=== PATIENT | female | born 1975 | race Two or more races ===

== ENCOUNTER 2019-04-06 17:35 | Emergency (ER) | payer MEDICAID ==
[2019-04-06] MEDS ORDERED: Acetaminophen/HYDROcodone 325-5 MG Tab PO ONE (17:36)
--- NOTE | 2019-04-06 17:57 | EDM.PDOC ---
ED HPI GENERAL MEDICAL PROBLEM - General Chief Complaint: Back Pain or Injury Stated Complaint: LT SHOULDER PAIN Time Seen by Provider: 04/06/19 17:52 Source of Information: Reports: Patient History Limitations: Reports: No Limitations - History of Present Illness INITIAL COMMENTS - FREE TEXT/NARRATIVE: Presents with neck pain and increased chronic left shoulder pain since slipping on ice and falling 2 days ago. Pain radiates to left bicep. Denies loss of consciousness, headache, numbness, tingling or weakness. No improvement with Tramadol. Onset Date: 04/04/19 Location: Reports: Neck, Upper Extremity, Left Quality: Reports: Ache Severity: Moderate Associated Symptoms: Reports: No Other Symptoms - Related Data Allergies Allergy/AdvReac Type Severity Reaction Status Date / Time Sulfa (Sulfonamide Allergy Rash Verified 04/06/19 17:48 Antibiotics) Home Meds: Home Meds ARIPiprazole [Abilify] 2 mg PO DAILY 04/06/19 [History] Baclofen 10 mg PO TID PRN #20 tablet 04/06/19 [Rx] Past Medical History Cardiovascular History: Reports: High Cholesterol Gastrointestinal History: Reports: PUD Psychiatric History: Reports: Depression - Past Surgical History Musculoskeletal Surgical History: Reports: Shoulder Surgery (Arthroscopic left shoulder 11/02/18) Social & Family History - Tobacco Use Smoking Status *Q: Current Every Day Smoker Tobacco Use Within Last Twelve Months: Cigarettes ED ROS GENERAL - Review of Systems Review Of Systems: Comprehensive ROS is negative, except as noted in HPI. ED EXAM, UPPER BACK/NECK PAIN - Physical Exam Exam: See Below Exam Limited By: No Limitations General Appearance: Alert, WD/WN, No Apparent Distress Ears Exam: Normal External Exam Nose Exam: Normal Inspection Throat/Mouth Exam: No Airway Compromise Head Exam: Atraumatic, Normocephalic Neck Exam: Tenderness (posterior neck) Nexus Criteria: Posterior, Midline Cervical Tenderness Cardiovascular/Respiratory: Regular Rate, Rhythm, Normal Peripheral Pulses, No Respiratory Distress Back Exam: Full Range of Motion Extremities: Normal Range of Motion, Normal Capillary Refill, Other (left shoulder tenderness, left biceps tenderness) Neurologic: No Motor/Sensory Deficits, Alert, Normal Mood/Affect, Oriented x 3 DTR: 2+: Bicep (L) Psychiatric: Normal Affect, Normal Mood Skin Exam: Normal Color, Warm/Dry Course - Vital Signs Last Recorded V/S: Last Vital Signs Temp 36.6 C 04/06/19 17:50 Pulse 91 04/06/19 17:50 Resp 18 04/06/19 17:50 BP 129/83 04/06/19 17:50 Pulse Ox 100 04/06/19 17:50 - Orders/Labs/Meds Orders: Active Orders 24 hr Category Date Time Status Cervical Spine wo Cont [CT] Stat Exams 04/06/19 17:51 Taken Shoulder Comp Lt [CR] Stat Exams 04/06/19 17:52 Taken Baclofen [Lioresal] Med 04/06/19 18:54 Once 10 mg PO ONETIME ONE - Radiology Interpretation Free Text/Narrative:: Left Shoulder XR: No acute process. CT C-spine w/o contrast: No sign of acute injury. minimal multilevel degenerative spondylosis. Emphysema. - Re-Assessments/Exams Free Text/Narrative Re-Assessment/Exam: 04/06/19 18:57 Discharged with [place] 5/325 #4 tabs (starter pack). Departure - Departure Time of Disposition: 18:55 Disposition: Home, Self-Care 01 Condition: Good Clinical Impression: Cervical strain, acute Qualifiers: Encounter type: initial encounter Qualified Code(s): S16.1XXA - Strain of muscle, fascia and tendon at neck level, initial encounter Left shoulder strain Qualifiers: Encounter type: initial encounter Qualified Code(s): S46.912A - Strain of unspecified muscle, fascia and tendon at shoulder and upper arm level, left arm , initial encounter - Discharge Information *PRESCRIPTION DRUG MONITORING PROGRAM REVIEWED*: Yes *COPY OF PRESCRIPTION DRUG MONITORING REPORT IN PATIENT CHERYL: No Prescriptions: Baclofen 10 mg PO TID PRN #20 tablet PRN Reason: Muscle Spasm Instructions: Cervical Sprain, [id number], Muscle Strain, [id number]-[id number] Referrals: Comfort Carpenter NP [Primary Care Provider] - 3 Days Forms: ED Department Discharge, ED Return to Work/School Form Additional Instructions: Do not take Tramadol while taking [place]. Fill the Baclofen prescription and take as directed. Follow up with your primary physician in 3 days. Sepsis Event Note - Focused Exam Vital Signs: Vital Signs Temp Pulse Resp BP Pulse Ox 04/06/19 17:50 36.6 C 91 18 129/83 100 Date Exam was Performed: 04/06/19 Time Exam was Performed: 18:54 - My Orders Last 24 Hours: My Active Orders 04/06/19 17:51 Cervical Spine wo Cont [CT] Stat 04/06/19 17:52 Shoulder Comp Lt [CR] Stat 04/06/19 18:54 Baclofen [Lioresal] 10 mg PO ONETIME ONE - Assessment/Plan Last 24 Hours: My Active Orders 04/06/19 17:51 Cervical Spine wo Cont [CT] Stat 04/06/19 17:52 Shoulder Comp Lt [CR] Stat 04/06/19 18:54 Baclofen [Lioresal] 10 mg PO ONETIME ONE
[2019-04-06] MEDS ORDERED: Baclofen 10 MG Tab PO ONE (18:54)
== END 2019-04-06 19:08 | disposition home or self-care (01) ==
LOC: FB.ED 17:35
DX: S16.1XXA Strain of muscle, fascia and tendon at neck level, initial encounter (principal); S46.912A Strain of unspecified muscle, fascia and tendon at shoulder and upper arm level, left arm, initial encounter; F17.210 Nicotine dependence, cigarettes, uncomplicated; Z88.2 Allergy status to sulfonamides; W00.0XXA Fall on same level due to ice and snow, initial encounter
CPT/HCPCS: 72125; 73030-LT; 99284-25; A9270-GY

== ENCOUNTER 2019-09-05 12:41 | Emergency (ER) | payer MEDICAID ==
--- NOTE | 2019-09-05 13:08 | EDM.PDOC ---
ED HPI GENERAL MEDICAL PROBLEM - General Stated Complaint: SOB SORE THROAT HEAD ACHE Time Seen by Provider: 09/05/19 13:00 Source of Information: Reports: Patient History Limitations: Reports: No Limitations - History of Present Illness INITIAL COMMENTS - FREE TEXT/NARRATIVE: 43-year-old female who reports on August 17, 2019, she developed difficulty breathing with cough, nasal congestion and some dizziness and lightheadedness. She reports she was seen at the [facility] on August 17 and was treated with Zithromax. She reports she had no improvement from this and reprocessed did to the [facility] on 08/26/2019 and had blood tests which showed an elevated white blood cell count (she had had an elevated white blood cell count on the visit before) and a chest x-ray which showed no definite pneumonia. She was placed on DuoNeb nebs, Augmentin, doxycycline and a tapering dose of prednisone. She just finished the prednisone a day or so ago and she re-presented to the clinic today because she feels that her symptoms are not improving and she actually feels that they are worsening with sore throat now, continued nasal congestion, continued fever up to 102F, cough and feelings of shortness of br eath. So has developed nausea with vomiting over the past 2 days and primarily the vomiting is after coughing. She reports she has been using the DuoNeb and does not really feel that she has gotten much benefit from this. She feels that she slightly improved after the prednisone. She reports she has been drinking liquids well. She does not really have much of an appetite. 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 She has diffuse body aches that are both aching and sharp pains that she rates as a 9/10. She also reports a headache that she reports is a pounding and throbbing headache with pressure in her frontal area that is a 10/10. Nothing really seems to make her symptoms better. She does feel somewhat more short of breath with activity and with her cough. She has had no palpitations. She does have chest pain with cough. No hemoptysis. She has been urinating well. No diarrhea. She does feel very fatigued. She also reports she has been having frequent sweats. There are no other associated signs or symptoms. There are no other modifying factors. Onset: Other (Ongoing problem since 08/17/2019) Duration: Getting Worse (Seemed to be getting worse over the past 2 days) Location: Reports: Head, Generalized Quality: Reports: Ache, Pressure, Sharp Severity: Severe Improves with: Reports: None Worsens with: Reports: Other (Activity. 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: Reports: Acetaminophen, Other (see below) (As above) headache and bodyache Pain Score (Numeric/FACES): 7 - Related Data Allergies Allergy/AdvReac Type Severity Reaction Status Date / Time Sulfa (Sulfonamide Allergy Rash Verified 04/06/19 17:48 Antibiotics) Home Meds: Home Meds Albuterol [Ventolin HFA] 2 puff .XX Q6H PRN 09/05/19 [History] Albuterol/Ipratropium [DuoNeb 3.0-0.5 MG/3 ML] 3 ml .XX Q6H 09/05/19 [History] Escitalopram Oxalate [Lexapro] 20 mg PO DAILY 09/05/19 [History] Fluticasone Propionate [Flovent HFA 220 MCG] 2 puff INH BID 09/05/19 [History] Melatonin 10 mg PO BEDTIME 09/05/19 [History] Mirtazapine [Remeron] 0.5 tab PO BEDTIME 09/05/19 [History] Omeprazole 40 mg PO ACBREAKFAST 09/05/19 [History] Ondansetron [Zofran ODT] 4 mg PO Q6H PRN #12 tab.dis 09/05/19 [Rx] SUMAtriptan [Imitrex] 50 mg PO Q2H PRN 09/05/19 [History] Sucralfate [Carafate] 10 ml PO Q6H 09/05/19 [History] atorvaSTATin Calcium [Lipitor] 20 mg PO DAILY 09/05/19 [History] diphenhydrAMINE [Benadryl] 25 mg PO BEDTIME PRN 09/05/19 [History] guaiFENesin/Codeine Phosphate [Codeine-Guaifen 10-100 mg/5 ml] 10 ml PO Q6H PRN 09/05/19 [History] levoFLOXacin [Levaquin] 750 mg PO DAILY 7 Days #7 tablet 09/05/19 [Rx] traMADol [Ultram] 50 mg PO Q6H PRN 09/05/19 [History] Past Medical History Cardiovascular History: Reports: High Cholesterol Gastrointestinal History: Reports: GERD, PUD Musculoskeletal History: Reports: Arthritis Neurological History: Reports: Migraines Psychiatric History: Reports: Anxiety, Depression Endocrine/Metabolic History: Reports: Obesity/BMI 30+ - Past Surgical History HEENT Surgical History: Reports: Adenoidectomy, Tonsillectomy Female Surgical History: Reports: Section, Hysterectomy Musculoskeletal Surgical History: Reports: Shoulder Surgery (Arthroscopic left shoulder 11/02/18) Social & Family History - Tobacco Use Smoking Status *Q: Former Smoker (Quit January 2019.) - Caffeine Use Caffeine Use: Reports: Soda - Alcohol Use Alcohol Use History: No - Living Situation & Occupation 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) ED ROS GENERAL - Review of Systems Review Of Systems: See Below Constitutional: Reports: Fever, Chills, Malaise, Other ("Sweats") HEENT: Reports: Throat Pain, Other (Nasal congestion and sinus pressure.) Respiratory: Reports: Shortness of Breath, Cough Cardiovascular: Reports: Dyspnea on Exertion, Lightheadedness Endocrine: Reports: Fatigue GI/Abdominal: Reports: Nausea, Vomiting Musculoskeletal: Reports: Back Pain, Other (Generalized body aches) Skin: Reports: No Symptoms Neurological: Reports: Headache Hematologic/Lymphatic: Reports: No Symptoms Immunologic: Reports: No Symptoms ED EXAM, GENERAL - Physical Exam Exam: See Below Exam Limited By: No Limitations General Appearance: Alert, WD/WN, No Apparent Distress Eye Exam: Bilateral Eye: EOMI, Normal Inspection, PERRL Ears: Normal External Exam, Hearing Grossly Normal Ear Exam: Bilateral Ear: Auricle Normal Nose: No Blood, Nasal Drainage, Clear Rhinorrhea Throat/Mouth: Normal Lips, Normal Voice, No Airway Compromise, Other (Posterior pharyngeal erythema) Head: Atraumatic, Normocephalic Neck: Normal Inspection, Supple, Non-Tender, Full Range of Motion Respiratory/Chest: No Respiratory Distress, Normal Breath Sounds, No Accessory Muscle Use, Chest Non-Tender, Rhonchi (Few scattered). No: Wheezing Cardiovascular: Normal Peripheral Pulses, Regular Rate, Rhythm, No Edema, No JVD, No Murmur Peripheral Pulses: 2+: Radial (L), Radial (R) GI/Abdominal: Normal Bowel Sounds, Soft, Non-Tender, No Mass Back Exam: Normal Inspection, Full Range of Motion Extremities: Normal Inspection, Normal Range of Motion, Non-Tender, No Pedal Edema, Normal Capillary Refill Neurological: Alert, Oriented, CN II-XII Intact, Normal Cognition, Normal Gait, No Motor/Sensory Deficits Skin Exam: Warm, Dry, Intact, Normal Color, No Rash Lymphatic: No Adenopathy Course - Vital Signs Last Recorded V/S: Last Vital Signs Temp 37.8 C 09/05/19 12:41 Pulse 91 09/05/19 12:41 Resp 19 09/05/19 12:41 BP 117/81 09/05/19 12:41 Pulse Ox 99 09/05/19 12:41 Orthostatic Blood Pressure [ 104/68 Standing] Orthostatic Blood Pressure [ 103/69 Sitting] Orthostatic Blood Pressure [ 109/71 Supine] - Orders/Labs/Meds Orders: Active Orders 24 hr Category Date Time Status Orthostatic Vital Signs [RC] ONETIME Care 09/05/19 13:25 Active RT Aerosol Therapy [RC] ASDIRECTED Care 09/05/19 13:28 Active Chest 2V [CR] Stat Exams 09/05/19 13:25 Taken Labs: Laboratory Tests 09/05/19 09/05/19 09/05/19 Range/Units 12:46 13:36 13:36 WBC 17.2 H (4.5-12.0) X10-3/uL RBC 4.98 (3.23-5.20) x10(6)uL Hgb 14.7 (11.5-15.5) g/dL Hct 44.6 (30.0-51.3) % MCV 89.6 (80-96) fL MCH 29.5 (27.7-33.6) pg MCHC 32.9 (32.2-35.4) g/dL RDW 11.6 (11.5-15.5) % Plt Count 379 H (125-369) X10(3)uL MPV 7.2 L (7.4-10.4) fL Add Manual Diff Yes Neutrophils % (Manual) 65 (46-82) % Band Neutrophils % 1 (0-6) % Lymphocytes % (Manual) 33 (13-37) % Monocytes % (Manual) 1 L (4-12) % POC VBG pH 7.37 (7.31-7.41) POC VBG pCO2 38.5 L (41-51) mmHG POC VBG HCO3 22.3 L (23-28) mmol/L POC VBG Total CO2 23 L (24-29) mmol/L POC VBG Base Excess -3 L (-2-3) mmol/L Sodium 139 (135-145) mmol/L Potassium 3.8 (3.5-5.3) mmol/L Chloride 106 (100-110) mmol/L Carbon Dioxide 24 (21-32) mmol/L BUN 10 (7-18) mg/dL Creatinine 1.0 (0.55-1.02) mg/dL Est Cr Clr Drug Dosing 53.18 mL/min Estimated GFR (MDRD) > 60 (>60) BUN/Creatinine Ratio 10.0 (9-20) Glucose 92 (80-116) mg/dL Calcium 9.1 (8.6-10.2) mg/dL Magnesium 2.0 (1.8-2.5) mg/dL Total Bilirubin 0.6 (0.1-1.3) mg/dL AST 20 (5-25) IU/L ALT 32 (12-36) U/L Alkaline Phosphatase 88 (56-112) IU/L C-Reactive Protein (0.5-0.9) mg/dL Total Protein 7.2 (6.0-8.0) g/dL Albumin 3.6 (3.5-5.2) g/dL Globulin 3.6 g/dL Albumin/Globulin Ratio 1.0 07/23/20 Range/Units 13:36 WBC (4.5-12.0) X10-3/uL RBC (3.23-5.20) x10(6)uL Hgb (11.5-15.5) g/dL Hct (30.0-51.3) % MCV (80-96) fL MCH (27.7-33.6) pg MCHC (32.2-35.4) g/dL RDW (11.5-15.5) % Plt Count (125-369) X10(3)uL MPV (7.4-10.4) fL Add Manual Diff Neutrophils % (Manual) (46-82) % Band Neutrophils % (0-6) % Lymphocytes % (Manual) (13-37) % Monocytes % (Manual) (4-12) % POC VBG pH (7.31-7.41) POC VBG pCO2 (41-51) mmHG POC VBG HCO3 (23-28) mmol/L POC VBG Total CO2 (24-29) mmol/L POC VBG Base Excess (-2-3) mmol/L Sodium (135-145) mmol/L Potassium (3.5-5.3) mmol/L Chloride (100-110) mmol/L Carbon Dioxide (21-32) mmol/L BUN (7-18) mg/dL Creatinine (0.55-1.02) mg/dL Est Cr Clr Drug Dosing mL/min Estimated GFR (MDRD) (>60) BUN/Creatinine Ratio (9-20) Glucose (80-116) mg/dL Calcium (8.6-10.2) mg/dL Magnesium (1.8-2.5) mg/dL Total Bilirubin (0.1-1.3) mg/dL AST (5-25) IU/L ALT (12-36) U/L Alkaline Phosphatase (56-112) IU/L C-Reactive Protein 1.2 H (0.5-0.9) mg/dL Total Protein (6.0-8.0) g/dL Albumin (3.5-5.2) g/dL Globulin g/dL Albumin/Globulin Ratio Meds: Medications Discontinued Medications Generic Name Dose Route Start Last Admin Trade Name Freq PRN Reason Stop Dose Admin Albuterol 2.5 mg 09/05/19 13:27 09/05/19 13:40 Proventil Neb Soln NEB 09/05/19 13:28 2.5 mg ONETIME ONE Administration Albuterol/Ipratropium 3 ml 09/05/19 13:27 09/05/19 13:40 Duoneb 3.0-0.5 Mg/3 Ml NEB 09/05/19 13:28 3 ml ONETIME ONE Administration - Radiology Interpretation Free Text/Narrative:: Chest x-ray PA and lateral showed no acute disease per my read. - Re-Assessments/Exams Free Text/Narrative Re-Assessment/Exam: 09/05/19 14:45: Lab tests show a persistent elevation in the white blood cell count of unclear etiology or significance. There is a slight elevation in the CRP. The remainder of her blood tests including a venous blood gas are reassuringly normal. The chest x-ray shows no definite pneumonia. She really got no benefit she feels from the DuoNeb and albuterol neb combination. Her O2 saturations remained 99% on room air and her vital signs are otherwise normal. There were no orthostatic changes on her blood pressure and pulse. She does not appear to be dehydrated. I am unsure why her symptoms are persisting. She has had multiple COVID tests that have been negative. Because of her recurrent fever and the persisting URI type symptoms, I will place the patient on another course of antibiotics (Levaquin, I discussed the risk associated with this medication and she is agreeable to try this medication despite them) and I will have her follow-up with her primary provider as she may need referral to a hazardous waste management specialist. I also discussed further evaluation including repeat COVID testing, CT scan of chest, repeat d-dimer testing (she has had this checked and it was normal) and she would like to give the other course of antibiotics a try and continue with symptomatic treatment and give this some more time. I have told her that she should definitely follow-up with her primary provider the beginning of this next week if her symptoms are not improving. Precautions and reasons for return to the emergency department were discussed with the patient while she was in the emergency department and were detailed in her discharge ins tructions. Departure - Departure Time of Disposition: 15:05 Disposition: Home, Self-Care 01 Condition: Good Clinical Impression: URI with cough and congestion, Acute febrile illness Pharyngitis Qualifiers: Pharyngitis/tonsillitis etiology: unspecified etiology Qualified Code(s): J02.9 - Acute pharyngitis, unspecified - Discharge Information Prescriptions: levoFLOXacin [Levaquin] 750 mg PO DAILY 7 Days #7 tablet Ondansetron [Zofran ODT] 4 mg PO Q6H PRN #12 tab.dis PRN Reason: Nausea/Vomiting Instructions: Upper Respiratory Infection, Adult, Lyod-bc-Gssm, Fever, Adult, Vyqe-bs-Bafc, Pharyngitis, Kopc-[id number], Cough, Adult, Szeh-hu-Urps Referrals: Comfort Carpenter [employer] PLATE W[employer]ER [Primary Care Provider] - Additional Instructions: Your blood tests showed a persistent elevation in your white blood cell count. Otherwise, they were reassuringly normal. Your chest x-ray showed no definite pneumonia. I am unsure why you are having the persisting problems and why you have redeveloped fever. You could be developing a pneumonia that we have not seen yet. I am placing you on another round of antibiotics (Levaquin). I have also given you a prescription for nausea medicine (Zofran 4 mg ODT). If you develop increasing joint pain or pain along your tendons, you should stop this medication as we discussed. If you are not improving by this coming Monday, you should follow-up with your primary provider next week. Back to the emergency department for worse breathing, unrelenting vomiting, marked weakness or dizziness, pass out spells or any other concerning sign or symptom. Sepsis Event Note (ED) - Focused Exam Vital Signs: Vital Signs Temp Pulse Resp BP Pulse Ox 09/05/19 12:41 37.8 C 91 19 117/81 99 - My Orders Last 24 Hours: My Active Orders 09/05/19 13:25 Orthostatic Vital Signs [RC] ONETIME Chest 2V [CR] Stat 09/05/19 13:28 RT Aerosol Therapy [RC] ASDIRECTED - Assessment/Plan Last 24 Hours: My Active Orders 09/05/19 13:25 Orthostatic Vital Signs [RC] ONETIME Chest 2V [CR] Stat 09/05/19 13:28 RT Aerosol Therapy [RC] ASDIRECTED
[2019-09-05] MEDS ORDERED: Albuterol/Ipratropium 3.0-0.5 MG/3 ML Neb Soln NEB ONE (13:27)
[2019-09-05] MEDS ORDERED: Albuterol 0.083% 2.5 MG/3 ML Neb Soln NEB ONE (13:27)
--- NOTE | 2019-09-05 16:40 | CR ---
INDICATION: Cough with shortness of breath. CHEST TWO VIEWS: PA and lateral views of the chest were obtained 09/05/19 - no comparison. The heart, mediastinum and bony thorax were unremarkable. Evidence of exogenous obesity is noted. No consolidating pneumonia or effusion was identified. However, there is bronchial wall cuffing at the lung bases and lower lung david of hlzy-on-[id number] degree, which may be on the basis of active peribronchial disease and should be correlated clinically. MTDD
== END 2019-09-05 15:21 | disposition home or self-care (01) ==
LOC: FB.ED 12:41
DX: J02.9 Acute pharyngitis, unspecified (principal); K21.9 Gastro-esophageal reflux disease without esophagitis; E78.00 Pure hypercholesterolemia, unspecified; G43.909 Migraine, unspecified, not intractable, without status migrainosus; F41.9 Anxiety disorder, unspecified; F32.9 Major depressive disorder, single episode, unspecified; Z88.2 Allergy status to sulfonamides; Z79.899 Other long term (current) drug therapy; Z87.891 Personal history of nicotine dependence
CPT/HCPCS: 36415; 71046; 80053; 82803; 83735; 85025; 86140; 94640; 99285-25; J7620-GY